=== PATIENT | male | born 1985 | race Caucasian/White ===

== ENCOUNTER 2022-08-24 21:42 | Emergency (ER) | payer BC ==
[~2022-08-24] VITALS: Ht 185.4 cm; Wt 106.6 kg
[~2022-08-24 21:42] MED LIST: IBUP-1971 PO; ONDA-8 TL
[2022-08-24 22:03] VITALS: BP_SYST 128
--- NOTE | 2022-08-24 22:05 | NUR ---
Patient triaged and placed in waiting room. VSS and patient appears in no acute distress at this time. Accompanied by , awaiting available bed, and MD Freeman notified of need for MSE.
--- NOTE | 2022-08-24 22:20 | NUR ---
MD Freeman examining pt.
--- NOTE | 2022-08-24 22:30 | NUR ---
PT TAKEN TO US FOR IMAGING.
[2022-08-25 00:43] LABS: CREATININE 1.07 mg/dL (0.55-1.30)
[2022-08-25 00:45] LABS: BASOPHILS % (AUTO) 0.7 % (0.0-2.0); EOSINOPHILS # (AUTO) 0.1 K/uL (0.0-0.4); EOSINOPHILS % (AUTO) 2.6 % (0.0-4.0); HEMATOCRIT 47.2 % (36-54); HEMOGLOBIN 16.1 g/dL (14.0-18.0); LYMPHOCYTES # (AUTO) 1.7 K/uL (1.0-5.5); LYMPHOCYTES % (AUTO) 31.2 % (20.5-51.5); MEAN CORPUSCULAR HEMOGLOBIN 32 pg (27-31); MEAN CORPUSCULAR HGB CONC 34 % (32-36); MEAN CORPUSCULAR VOLUME 95 fL (79.0-98.0); MONOCYTES # (AUTO) 0.4 K/uL (0.0-1.0); MONOCYTES % (AUTO) 7.6 % (1.7-9.3); NEUTROPHILS # (AUTO) 3.1 K/uL (1.8-7.7); NEUTROPHILS % (AUTO) 57.9 % (40.0-70.0); PLATELET COUNT (AUTO) 155 K/uL (130-430); RED BLOOD CELL COUNT(AUTO) 4.97 MIL/uL (4.2-6.2); RED CELL DISTRIBUTION WIDTH 15.6 % (9.0-15.0); WHITE BLOOD COUNT (AUTO) 5.4 K/uL (4.8-10.8)
[2022-08-25] MEDS ORDERED: APIX5TAB4 PO (01:23)
--- NOTE | 2022-08-25 01:35 | NUR ---
Patient given written and verbal discharge instructions and verbalizes understanding. ER MD Freeman discussed with patient the results and treatment provided. Patient in stable condition. ID arm band removed. Rx of Eliquis sent to preferred pharmacy. Patient educated on pain management and to follow up with PMD. Opportunity for questions provided and answered. Medication side effect fact sheet provided.
[2022-08-25 01:37] VITALS: BP_SYST 131
== END 2022-08-25 01:36 | disposition home or self-care (01) ==
LOC: SED 21:42
DX: I82.401 Acute embolism and thrombosis of unspecified deep veins of right lower extremity (principal); M79.661 Pain in right lower leg; R05.9 Cough, unspecified; R06.2 Wheezing; Z79.899 Other long term (current) drug therapy
CPT/HCPCS: 36415; 80048; 85025; 93971; 99284